=== PATIENT | female | born 1985 ===

== ENCOUNTER → 2018-08-13 21:18 | Outpatient (REF) | payer OTHER, MEDICAID, SELFPAY | LOC: LAB 21:18 | PROVIDERS: Visit Provider Acupuncturist | DX: Z11.51 Encounter for screening for human papillomavirus (HPV) (principal); Z12.4 Encounter for screening for malignant neoplasm of cervix; Z00.00 Encounter for general adult medical examination without abnormal findings | CPT/HCPCS: 87624; 88142 ==